=== PATIENT | male | born 1965 | race African-American/Black ===

== ENCOUNTER 2016-08-22 12:12 | Emergency (ER) | payer OTHER, MEDICAID ==
[~2016-08-22] VITALS: Ht 180.3 cm; Wt 86.9 kg
[~2016-08-22 12:12] MED LIST: DOXE100C4 PO; OMEP20TA PO; THIO2CAP PO
[2016-08-22 12:15] VITALS: BP 129/71; PULSE 78; RESP 17; TEMP 100.1; O2SAT 100
[2016-08-22] MEDS ORDERED: THIO2CAP PO (12:28)
[2016-08-22] MEDS ORDERED: OMEP20TA PO (12:28)
[2016-08-22] MEDS ORDERED: DOXE150C7 PO (12:28)
[2016-08-22] MEDS ORDERED: BENZ1TAB PO (12:28)
--- NOTE | 2016-08-22 12:29 | PD ---
HPI Chief Complaint: Cold / Flu Symptoms Time Seen by Provider: 12:18 Travel History International Travel<30 days: No Contact w/Intl Traveler<30days: No Traveled to known affect area: No History of Present Illness HPI Is a 51 year-old man with history of schizophrenia presents to the emergency department complaining of sore throat and scratchy throat feeling dehydrated a little bit of cough and feeling unwell. No definite fevers. He otherwise had been feeling generally well and healthy. He has an occasional shortness of breath. History Past Medical History Narrative Medical Chronic kidney disease Schizophrenia Hyperlipidemia GERD Sleep apnea Tetanus Vaccination: < 5 Years Influenza Vaccination: No Social History Alcohol Use: No Tobacco Use: No Allergies-Medications (Allergen,Severity, Reaction): Coded Allergies: Aleve (Verified Allergy, Severe, HIVES, 01/04/16) Advil (Verified Adverse Reaction, Severe, KIDNEY PROBLEMS, 01/04/16) Ibuprofen (Verified Adverse Reaction, Severe, KIDNEY PROBLEMS, 01/04/16) Motrin (Verified Adverse Reaction, Severe, KIDNEY PROBLEMS, 01/04/16) Reported Meds & Prescriptions Reported Meds & Active Scripts Active Reported Thiothixene 2 Mg Cap 4 Mg PO TID Doxepin 100 mg (Doxepin HCl) 100 Mg Cap 200 Mg PO HS 2 tabs Omeprazole 20 mg (Omeprazole) 20 Mg Tab 20 Mg PO DAILY Review of Systems Except as stated in HPI: all other systems reviewed are Neg Physical Exam Narrative GENERAL: Well-appearing 51-year-old man, no acute distress. SKIN: Focused skin assessment warm/dry. HEAD: Atraumatic. Normocephalic. EYES: Pupils equal and round. No scleral icterus. No injection or drainage. ENT: No nasal bleeding or discharge. Mucous membranes pink and moist. TMs normal. Throat is normal. NECK: Trachea midline. No JVD. No adenopathy. CARDIOVASCULAR: Regular rate and rhythm. No murmur appreciated. RESPIRATORY: No accessory muscle use. Clear to auscultation. Breath sounds equal bilaterally. GASTROINTESTINAL: Abdomen soft, non-tender, nondistended. Hepatic and splenic margins not palpable. MUSCULOSKELETAL: No obvious deformities. No clubbing. No cyanosis. No edema. Data Data Last Documented VS Vital Signs Date Time Temp Pulse Resp B/P Pulse Ox O2 Delivery O2 Flow Rate FiO2 08/22/16 12:15 100.1 78 17 129/71 100 [facility] Medical Decision Making Medical Screen Exam Complete: Yes Emergency Medical Condition: Yes Differential Diagnosis URI, pharyngitis, sinusitis, kidney disease, dehydration, pneumonia Narrative Course Medical decision making 51-year-old man with history of chronic kidney disease, here URI symptoms. Looks well. No fevers. No evidence pneumonia. Recommend supportive treatment. Diagnosis Primary Impression: URI (upper respiratory infection) Additional Instructions: Use [id number] acetaminophen as needed for fever body aches. Drink plenty fluids stay well-hydrated. Follow-up with your primary doctor for not completely well in the next 3-5 days. Return to the emergency department for any worsening trouble breathing, or any other new or worsening symptoms. Med/Other Pt SpecificInfo: No Change to Meds Disposition: 01 DISCHARGE HOME Condition: Stable Keyur Schilling MD August 22, 2016 12:29
[2016-08-22] MEDS ORDERED: ACETAMINOPHEN 325 MG TAB PO ONE (12:30)
[2016-08-22] MEDS ORDERED: DEXT1TAB18 PO (13:05)
[2016-08-22] MEDS ORDERED: guaiFENesin E.R. 600 MG TAB PO ONE (13:15)
== END 2016-08-22 13:14 | disposition home or self-care (01) ==
LOC: NEPD 12:12
DX: J06.9 Acute upper respiratory infection, unspecified (principal); N18.9 Chronic kidney disease, unspecified; F20.9 Schizophrenia, unspecified; E78.5 Hyperlipidemia, unspecified
CPT/HCPCS: 99282